=== PATIENT | male | born 1990 | race Caucasian/White ===

== ENCOUNTER 2018-01-25 18:21 | Emergency (ER) | payer MEDICAID ==
[~2018-01-25] VITALS: Ht 170.1 cm; Wt 77.1 kg
[2018-01-25] MEDS ORDERED: PREDNISONE20 M1 PO (19:46)
[2018-01-25] MEDS ORDERED: ROBAXIN500 M1 PO (19:46)
== END 2018-01-25 19:54 | disposition home or self-care (01) ==
LOC: ED 18:21
DX: M54.42 Lumbago with sciatica, left side (principal); Z88.6 Allergy status to analgesic agent; X50.1XXA Overexertion from prolonged static or awkward postures, initial encounter; Y93.89 Activity, other specified; Y92.89 Other specified places as the place of occurrence of the external cause; Y99.9 Unspecified external cause status

== ENCOUNTER → 2021-11-06 | Outpatient (CLI) | payer OTHER ==
[~2021-11-06] MED LIST: PREDNISONE20 M1 PO; ROBAXIN500 M1 PO
== END ==
LOC: COVID19 15:01
PROVIDERS: ATTEND Internal Medicine
DX: U07.1 COVID-19 (principal)